=== PATIENT | male | born 1995 | race Asian ===

== ENCOUNTER 2020-10-10 22:32 | Emergency (ER) | payer MEDICAID, MEDICARE ==
[~2020-10-10] VITALS: Ht 177.8 cm; Wt 76.0 kg
[2020-10-10 22:57] VITALS: BP 116/82
[2020-10-10] MEDS ORDERED: CLIN150C15 MT (23:23)
== END 2020-10-10 23:37 | disposition home or self-care (01) ==
LOC: ER 22:32
DX: J02.9 Acute pharyngitis, unspecified (principal); Z86.19 Personal history of other infectious and parasitic diseases
CPT/HCPCS: 99281